=== PATIENT | female | born 1985 | race Caucasian/White ===

== ENCOUNTER 2016-09-27 12:39 | Emergency (ER) | payer MEDICAID, OTHER ==
[~2016-09-27] VITALS: Ht 167.6 cm; Wt 79.0 kg
[~2016-09-27 12:39] MED LIST: OMEP20TA39 PO
[2016-09-27 12:44] VITALS: BP 136/92; PULSE 115; RESP 16; TEMP 98.9; O2SAT 97
--- NOTE | 2016-09-27 13:12 | PD ---
HPI Chief Complaint: GI Complaint Time Seen by Provider: 13:11 Travel History International Travel<30 days: No Contact w/Intl Traveler<30days: No Traveled to known affect area: No History of Present Illness HPI 31-year-old female presents to the ED for evaluation of ~5 hour history of nausea, vomiting, diarrhea. Patient states she woke up approximately 7:30 this morning. She states around an hour later she experienced 10-12 episodes of nonbloody, nonbilious vomiting. She also endorses several nonbloody, loose bowel movements. Nausea resolved on presentation. Patient endorses loose bowel movement in the ED bathroom. She denies fever, chills, abdominal pain, dysuria, back pain. She denies risk of . States that she is currently menstruating. She denies sick contacts. No recent travel outside the [place]. She thinks she may have vomited a worm which she brought with her for evaluation. PFSH Past Medical History Blood Disorders: No Diminished Hearing: No ?: Not LMP: 09/13/16 : 3 Para: 3 Past Surgical History Appendectomy: Yes Social History Alcohol Use: Yes (OCC) Tobacco Use: Yes (/2 PPD) Substance Use: No Allergies-Medications (Allergen,Severity, Reaction): Coded Allergies: No Known Allergies (Verified , 09/27/16) Reported Meds & Prescriptions Reported Meds & Active Scripts Active Zofran Odt (Ondansetron Odt) 4 Mg Tab 4 Mg SL Q8HR PRN Hm Omeprazole (Omeprazole) 20 Mg Tab 20 Mg PO DAILY Review of Systems Except as stated in HPI: all other systems reviewed are Neg Physical Exam Narrative GENERAL: Well-nourished, well-developed white female in no acute distress. SKIN: Warm and dry. Good turgor. HEAD: Normocephalic. EYES: No scleral icterus. No injection or drainage. ENT: Pear[place] grant tympanic membranes bilaterally. Nasal mucosa moist. Oropharynx dry, no erythema, exudates or edema. Airway patent. Uvula midline. NECK: Supple, trachea midline. No JVD or lymphadenopathy. CARDIOVASCULAR: Regular rate and rhythm without murmurs, gallops, or rubs. 2+ DP and radial pulses bilaterally. RESPIRATORY: Breath sounds clear and equal bilaterally. No accessory muscle use. GASTROINTESTINAL: Abdomen soft, non-tender, nondistended. Active bowel sounds. MUSCULOSKELETAL: No cyanosis, or edema. Patient is observed to ambulate with a normal gait. BACK: Nontender without obvious deformity. No CVA tenderness. Data Data Last Documented VS Vital Signs Date Time Temp Pulse Resp B/P Pulse Ox O2 Delivery O2 Flow Rate FiO2 09/27/16 13:33 98.2 110 20 124/89 98 Room Air Orders Ondansetron Odt (Zofran Odt) (09/27/16 13:45) Urinalysis - C+S If Indicated (09/27/16 13:48) Ed Urine Pregnancytest Poc (09/27/16 13:54) Labs Laboratory Tests Test 09/27/16 13:45 Urine Collection Type CLEAN CATCH Urine Color YELLOW Urine Turbidity CLEAR Urine pH 5.5 Urine Specific [place] 1.022 Urine Protein NEG mg/dL Urine Glucose (UA) NEG mg/dL Urine Ketones TRACE mg/dL Urine Occult Blood SMALL Urine Nitrite NEG Urine Bilirubin NEG Urine Leukocyte Esterase NEG Urine RBC 0-3 /hpf Urine WBC 0-2 /hpf Urine Squamous Epithelial 6-8 /hpf Cells Urine Amorphous Sediment FEW Microscopic Urinalysis Comment CULT NOT INDICATED MDM Medical Decision Making Medical Screen Exam Complete: Yes Emergency Medical Condition: Yes Differential Diagnosis gastroenteritis versus viral syndrome versus versus less likely parasitic infection versus other Narrative Course 31-year-old female presents to the ED for evaluation of ~5 hour history of nausea, vomiting, diarrhea. Nausea and vomiting onset approximately 8:30 this morning. Endorses 10-12 episodes of nonbloody, nonbilious vomiting. She also endorses several nonbloody, loose bowel movements. Nausea resolved on presentation. Patient endorses loose bowel movement in the ED bathroom. She denies fever, chills, abdominal pain, dysuria, back pain. She denies risk of . States that she is currently menstruating. No recent travel outside the [place]. She thinks she may have vomited a worm which she brought for evaluation. Vitals reviewed. Patient is tachycardic, hypertensive on presentation. Hypertension resolves in the exam room. Physical exam reveals a nontoxic-appearing white female in no acute distress. Abdominal exam is completely benign. No CVA tenderness. She presents a ~2 cm fibrous object which does not appear wormlike in my opinion. Patient was administered a single dose of ODT Zofran, allowed to orally rehydrate. Bedside urine test negative. No culture indicated of the UA. This is gastroenteritis. The patient was prescribed a few doses of Zofran. She is instructed to eat a bland diet, gradually reintroduce new foods, use Imodium [id number] as directed on packaging as needed for continued diarrhea. We discussed reasons to return to the ED. The patient indicated understanding of the instructions, and was amenable to plan of care. She is stable and discharged home. Diagnosis Primary Impression: Gastroenteritis Referrals: Primary Care Physician Patient Instructions: Acute Nausea and Vomiting (ED), General Instructions Additional Instructions: Rest, hydrate. Replete fluid loss with sports drinks, Pedialyte, broth, water. Eat a bland diet (BRAT) and gradually reintroduce new foods. Take Zofran as needed for episodic vomiting. Take Imodium as needed for continued diarrhea. Follow up with the primary care provider this week. Return to the ED for any urgent or emergent medical condition. Med/Other Pt SpecificInfo: Prescription(s) given Scripts Ondansetron Odt (Zofran Odt)4 Mg Tab4 Mg SL Q8HR PRN (Nausea/Vomiting) #6 TAB Ref 0 Prov:Karmen Sharp MD 09/27/16 Disposition: 01 DISCHARGE HOME Condition: Stable Nava Carr Sep 27, 2016 13:12
[2016-09-27 13:33] VITALS: BP 124/89; PULSE 110; RESP 0; RESP 20; TEMP 98.2; O2SAT 98
[2016-09-27] MEDS ORDERED: ONDANSETRON ODT 4 MG TAB PO ONE (13:45)
[2016-09-27 14:11] LABS: BLOOD, URINE SMALL (NEG); GLUCOSE,URINE NEG (NEG); KETONE, URINE TRACE mg/dL (NEG); NITRITE,URINE NEG (NEG); PH, URINE 5.5 (5.0-8.5)
[2016-09-27 14:19] LABS: METHOD OF COLLECTION CLEAN CATCH
[2016-09-27 14:20] LABS: URINE COLOR YELLOW (YELLW/STRAW)
[2016-09-27 14:24] LABS: WBC, URINE 0-2 /hpf (0-5)
[2016-09-27 14:25] LABS: RBC, URINE 0-3 /hpf (0-3)
[2016-09-27 14:26] LABS: COMMENT (UR) CULT NOT INDICATED; CULTURE IF INDICATED CULT NOT INDICATED
[2016-09-27] MEDS ORDERED: ZOFR4TAB3 SL (14:31)
== END 2016-09-27 14:37 | disposition home or self-care (01) ==
LOC: PHED 12:39 → PHEFT 14:37
DX: K52.9 Noninfective gastroenteritis and colitis, unspecified (principal); F17.210 Nicotine dependence, cigarettes, uncomplicated
CPT/HCPCS: 81001; 84703; 99284